=== PATIENT | male | born 1975 | race Caucasian/White ===

== ENCOUNTER 2022-09-29 17:11 | Emergency (ER) | payer MEDICAID ==
[~2022-09-29] VITALS: Ht 175.3 cm; Wt 88.6 kg
[2022-09-29 17:16] VITALS: BP 146/100; PULSE 97; RESP 18; TEMP 98; O2SAT 97
== END 2022-09-29 20:54 | disposition home or self-care (01) ==
LOC: ER 17:13
DX: Z04.1 Encounter for examination and observation following transport accident (principal); V89.2XXA Person injured in unspecified motor-vehicle accident, traffic, initial encounter; Y93.89 Activity, other specified; Y92.488 Other paved roadways as the place of occurrence of the external cause; Y99.8 Other external cause status
CPT/HCPCS: 99283